=== PATIENT | female | born 1985 | race Caucasian/White ===

== ENCOUNTER 2019-04-15 10:06 | Inpatient (IN) | payer MEDICAID, OTHER ==
[~2019-04-15] VITALS: Ht 160 cm; Wt 141.0 kg
[2019-04-15 11:35] LABS: BASOPHILS % (AUTO) 0.4 % (0.0-2.0); EOSINOPHILS % (AUTO) 0.8 % (1.0-6.0); HEMATOCRIT 37.4 % (36-46); HEMOGLOBIN 11.7 g/dL (12.0-16.0); LYMPHOCYTES # (AUTO) 2.6 K/uL (1.0-4.8); LYMPHOCYTES % (AUTO) 21.2 % (22.0-44.0); MEAN CORPUSCULAR HEMOGLOBIN 23.7 pg (26.0-34.0); MEAN CORPUSCULAR HGB CONC 31.2 G/dL (31.0-37.0); MEAN CORPUSCULAR VOLUME 76 fL (80-100); MONOCYTES # (AUTO) 0.6 K/uL (0.1-1.0); MONOCYTES % (AUTO) 4.6 % (2.0-9.0); NEUTROPHILS # (AUTO) 8.8 K/uL (1.8-7.7); PLATELET COUNT (AUTO) 481 K/uL (150-450); RED BLOOD CELL COUNT(AUTO) 4.92 MIL/uL (4.00-5.20); RED CELL DISTRIBUTION WIDTH 16.6 % (11.5-14.5)
[2019-04-15 11:44] LABS: AMPHET/METH SCREEN,URINE NEGATIVE (NEGATIVE); BARBITURATE SCREEN, URINE NEGATIVE (NEGATIVE); BENZODIAZEPINES SCREEN,URINE NEGATIVE (NEGATIVE); CANNABINOID SCREEN,URINE POSITIVE (NEGATIVE); COCAINE SCREEN,URINE NEGATIVE (NEGATIVE); METHADONE SCREEN, URINE NEGATIVE (NEGATIVE); OPIATE SCREEN,URINE NEGATIVE (NEGATIVE)
[2019-04-15 11:46] LABS: PHENCYCLIDINE SCREEN,URINE NEGATIVE (NEGATIVE)
[2019-04-15 11:48] LABS: ANION GAP 11 mmol/L (8-16); CALCIUM, TOTAL 9.4 mg/dL (8.8-10.5); CARBON DIOXIDE 26 mmol/L (22-29); CHLORIDE 102 mmol/L (98-107); CREATININE 0.67 mg/dL (0.60-1.30); GLOMERULAR FILTR. RATE CALC > 60 mL/min (>60); GLUCOSE,RANDOM 100 mg/dL (70-110); POTASSIUM 3.7 mmol/L (3.5-5.1); SODIUM SERUM 139 mmol/L (136-145); UREA NITROGEN, BLOOD 7 mg/dL (7-18)
[2019-04-15 11:54] LABS: ALANINE AMINOTRANSFERASE 61 U/L (12-78); ALBUMIN 3.3 g/dL (3.4-5.0); ALKALINE PHOSPHATASE 103 U/L (46-116); ASPARTATE AMINOTRANSFERASE 53 U/L (15-37); BILIRUBIN,TOTAL 0.4 mg/dL (0.1-1.0); TOTAL PROTEIN, SERUM 8.5 g/dL (6.4-8.2)
[2019-04-15] MEDS ORDERED: HALOPERIDOL 5 MG TABLET PO PRN (18:45)
[2019-04-15] MEDS: LORazepam 2 MG TABLET PO PRN (20:52)
[2019-04-15 21:23] VITALS: BP 152/77
[2019-04-15] MEDS: ZOLPIDEM TARTRATE 10 MG TABLET PO PRN (21:35)
[2019-04-15] MEDS ORDERED: ACETAMINOPHEN 325 MG TABLET PO PRN (23:15)
[2019-04-16 08:05] VITALS: BP 153/98
[2019-04-16 08:58] LABS: CHOL/HDL RATIO 6.2 (3.9-5.7); CHOLESTEROL 186 mg/dL (131-200); FREE T4 (FREE THYROXINE) 1.05 ng/dL (0.76-1.46); HCG,QUANTITATIVE < 1 mIU/mL (0-6); HDL CHOLESTEROL 30 mg/dL (40-60); LDL CHOL (CALC.) 134 mg/dL (0-130); THYROID STIMULATING HORMONE 1.24 uIU/mL (0.36-3.74); TRIGLYCERIDES 108 mg/dL (15-150)
[2019-04-16] MEDS: IBUPROFEN 400 MG TABLET PO PRN (13:51)
[2019-04-16 17:01] VITALS: BP 131/73
[2019-04-16] MEDS: LORazepam 2 MG TABLET PO PRN (20:18)
[2019-04-16] MEDS: ZOLPIDEM TARTRATE 10 MG TABLET PO PRN (21:08)
[2019-04-17 08:05] VITALS: BP 112/74
[2019-04-17] MEDS: ARIPiprazole 5 MG TABLET PO SCH (08:23)
[2019-04-17] MEDS: BuPROPion HCL XL 150 MG ER TABLET PO SCH (08:26)
[2019-04-17 16:37] VITALS: BP 140/74
[2019-04-17] MEDS: LORazepam 2 MG TABLET PO PRN (20:26)
[2019-04-17] MEDS: ZOLPIDEM TARTRATE 10 MG TABLET PO PRN (21:25)
[2019-04-18 08:00] VITALS: BP 142/72
[2019-04-18] MEDS: BuPROPion HCL XL 150 MG ER TABLET PO SCH (08:52)
[2019-04-18] MEDS: ARIPiprazole 5 MG TABLET PO SCH (08:52)
[2019-04-18] MEDS ORDERED: ARIPiprazole 5 MG TABLET PO ONE (12:30)
[2019-04-18] MEDS ORDERED: BuPROPion HCL XL 150 MG ER TABLET PO ONE (12:30)
[2019-04-18 17:26] VITALS: BP 143/89
[2019-04-18 20:00] VITALS: BP 140/80
[2019-04-18] MEDS: IBUPROFEN 400 MG TABLET PO PRN (20:03)
[2019-04-18] MEDS: LORazepam 2 MG TABLET PO PRN (20:03)
[2019-04-18] MEDS: ZOLPIDEM TARTRATE 10 MG TABLET PO PRN (21:16)
[2019-04-19] MEDS: ARIPiprazole 10 MG TABLET PO SCH (08:42)
[2019-04-19] MEDS: BuPROPion HCL XL 150 MG ER TABLET PO SCH (08:43)
[2019-04-19 08:59] VITALS: BP 145/87
[2019-04-19 18:09] VITALS: BP 136/85
[2019-04-19] MEDS: LORazepam 2 MG TABLET PO PRN (20:06)
[2019-04-19] MEDS: ZOLPIDEM TARTRATE 10 MG TABLET PO PRN (21:26)
[2019-04-20] MEDS: ARIPiprazole 10 MG TABLET PO SCH (08:29)
[2019-04-20] MEDS: BuPROPion HCL XL 150 MG ER TABLET PO SCH (08:30)
[2019-04-20 08:45] VITALS: BP 132/97
[2019-04-20 19:37] VITALS: BP 134/85
[2019-04-20] MEDS: ZOLPIDEM TARTRATE 10 MG TABLET PO PRN (21:52)
[2019-04-21 08:22] VITALS: BP 140/72
[2019-04-21] MEDS: ARIPiprazole 10 MG TABLET PO SCH (08:54)
[2019-04-21] MEDS: BuPROPion HCL XL 150 MG ER TABLET PO SCH (08:54)
[2019-04-21 17:16] VITALS: BP 119/63
[2019-04-21] MEDS: ZOLPIDEM TARTRATE 10 MG TABLET PO PRN (21:00)
[2019-04-22 08:00] VITALS: BP 137/72
[2019-04-22] MEDS: ARIPiprazole 10 MG TABLET PO SCH (08:18)
[2019-04-22] MEDS: BuPROPion HCL XL 150 MG ER TABLET PO SCH (08:19)
[2019-04-22] MEDS ORDERED: BUPR-93 PO (14:35)
[2019-04-22] MEDS ORDERED: ARIP10TA8 PO (14:35)
== END 2019-04-22 18:35 | disposition home or self-care (01) | DRG 751 ==
LOC: EMS 10:09 → 3EI 19:00
PROVIDERS: ADMIT Psychiatry & Neurology Psychiatry; ATTEND Psychiatry & Neurology Psychiatry
DX: F33.3 Major depressive disorder, recurrent, severe with psychotic symptoms (principal); R45.851 Suicidal ideations; Z68.43 Body mass index [BMI] 50.0-59.9, adult; F41.9 Anxiety disorder, unspecified; D72.829 Elevated white blood cell count, unspecified; E66.9 Obesity, unspecified; R45.84 Anhedonia; R79.89 Other specified abnormal findings of blood chemistry; F60.3 Borderline personality disorder; D64.9 Anemia, unspecified; F12.90 Cannabis use, unspecified, uncomplicated; Z82.49 Family history of ischemic heart disease and other diseases of the circulatory system; Z83.3 Family history of diabetes mellitus; Z90.49 Acquired absence of other specified parts of digestive tract
CPT/HCPCS: 80074; 84439; 84443; G0480